=== PATIENT | female | born 1955 | race African-American/Black ===

== ENCOUNTER 2017-01-19 15:38 | Emergency (ER) | payer MEDICARE, OTHER ==
--- NOTE | ~2017-01-19 | EKG ---
PATIENT: CONRAD KENNY UNIT #: [id number] Ventricular Rate: 63 BPM Atrial Rate: 63 BPM P-R Interval: 144 ms QRS Duration: 64 ms Q-T Interval: 398 ms QTC Calculation(Bezet): 407 ms P [place]: 34 degrees Calculated R [place]: -6 degrees Calculated T [place]: 12 degrees Diagnosis Line: Normal sinus rhythm with sinus arrhythmia Diagnosis Line: Low voltage QRS Diagnosis Line: Inferior infarct , age undetermined Diagnosis Line: Abnormal ECG Diagnosis Line: When compared with ECG of 24-OCT-2013 13:08, Diagnosis Line: Inferior infarct is now Present Diagnosis Line: Confirmed by CHARLES MOORE MD ([id number]) on Diagnosis Line: 01/21/2017 11:05:55 AM INTERPRETING MD: OSCAR KAM
[~2017-01-19 15:38] MED LIST: ALB/IPRATROPIUM/1 E1 INH; ANTIVERT PO; DILANTIN; FLEXERIL; FLONASE16 GM; GLUCOPHAGE XR500 MG; IBUPROFEN800 MG PO; K-DUR20 ME1 PO; KEPPRA750 MG; LASIX; LISINOPRIL; PHENERGAN25 MG PO; ZITHROMAX PO
[2017-01-19 17:04] LABS: BASOPHIL% 0.5 % (0-2.5); EOSINOPHIL# 0.2 X10e3 (0-0.7); EOSINOPHIL% 3.3 % (0.0-7.0); HEMATOCRIT 39.5 % (35.0-45.0); HEMOGLOBIN 12.8 gm/dL (12.0-16.0); LYMPHOCYTE# 2.7 X10e3 (1.0-3.5); LYMPHOCYTE% 39.4 % (17.0-45.0); MEAN CELL VOLUME 92.4 FL (83-96); MEAN CORPUSCULAR HEMOGLOBIN 29.9 PG (28-34); MEAN CORPUSCULAR HGB CONC 32.3 g/dL (30-36); MEAN PLATELET VOLUME 9.5 FL (6.5-11.5); MONOCYTE# 0.5 X10e3 (0-1.0); MONOCYTE% 7.2 % (3.0-12.0); NEUTROPHIL# 3.4 X10e3 (1.5-7.1); NEUTROPHIL% 49.6 % (40-75); PLATELET COUNT 175 X10e3 (140-420); RED BLOOD COUNT 4.28 X10e (3.90-5.30); RED CELL DISTRIBUTION WIDTH 13.2 % (11.0-15.5); WHITE BLOOD COUNT 6.8 X10e3 (4.0-10.5)
[2017-01-19 17:06] LABS: DIFF IND NO
[2017-01-19 17:24] LABS: POC - TROPONIN <0.05 ng/mL (<=0.05)
[2017-01-19 17:35] LABS: ALBUMIN SERUM 3.4 g/dL (3.5-5.0); ALKALINE PHOSPHATASE 73 U/L (32-92); ALT (SGPT) 15 U/L (10-40); AST (SGOT) 19 U/L (10-42); BILIRUBIN,TOTAL 0.4 mg/dL (0.2-2.0); BLOOD UREA NITROGEN 14 mg/dL (9-23); CARBON DIOXIDE 27 mmol/L (22-31); CHLORIDE 106 mmol/L (100-111); CREATININE SERUM 0.7 mg/dL (0.6-1.4); GLOM FILT RATE Estimated 107.6 mL/min (>60); GLUCOSE FASTING 227 mg/dL (70-110); POTASSIUM 3.8 mmol/L (3.5-5.1); PROTEIN TOTAL SERUM 6.4 g/dL (6.0-8.3); SODIUM 139 mmol/L (135-145)
[2017-01-19 17:40] LABS: URINE SOURCE CLEAN CATCH
[2017-01-19 17:44] LABS: URINE APPEARANCE CLEAR; URINE BILIRUBIN NEG (NEG); URINE BLOOD NEG (NEG); URINE COLOR YELLOW; URINE GLUCOSE >1000 MG/DL (NEG); URINE KETONE TRACE (NEG); URINE LEUKOCYTE ESTERASE 2+ (NEG); URINE NITRATE NEG (NEG); URINE PROTEIN NEG (NEG); URINE SPECIFIC GRAVITY 1.032 (1.003-1.035)
[2017-01-19 17:46] LABS: CULTURE INDICATED? YES; URBCS1 AUWI 0-2 /[HPF] (0-2); URINE BACTERIA AUWI 1+ (NEGATIVE); URINE SQUAMOUS EPITHELIAL CELL OCC /[HPF]; UWBCS1 AUWI 50-100 (0-5)
[2017-01-19 17:51] LABS: BILIRUBIN, DIRECT <0.1 mg/dL (0.0-0.2); BILIRUBIN,INDIRECT 0.3 mg/dL (0.0-0.9)
== END 2017-01-19 18:32 | disposition home or self-care (01) ==
LOC: CED 15:38
PROVIDERS: Emergency Medicine
DX: N30.00 Acute cystitis without hematuria (principal); R42 Dizziness and giddiness; E78.5 Hyperlipidemia, unspecified; E11.9 Type 2 diabetes mellitus without complications; I10 Essential (primary) hypertension; Z90.710 Acquired absence of both cervix and uterus; Z88.0 Allergy status to penicillin; Z88.5 Allergy status to narcotic agent
CPT/HCPCS: 36415; 80048; 80076; 81003; 82553; 82947; 84484; 85025; 87086; 93005; 96360; 99284